=== PATIENT | male | born 1960 | race Caucasian/White ===

== ENCOUNTER → 2019-03-29 13:09 | Outpatient (CLI) | payer BC, SELFPAY ==
--- NOTE | ~2019-03-29 | XR_ITS ---
EXAMINATION: XR sinus min 3V DATE: 03/29/2019 13:31 INDICATION: Sinus problems. TECHNIQUE: 6 views of the paranasal sinuses were obtained. COMPARISON: None. FINDINGS: Bone alignment is normal. No fracture. There is moderate mucosal thickening in the maxillar y sinuses. IMPRESSION: 1. Moderate mucosal thickening in the maxillary sinuses. Reviewed, dictated and finalized at location [facility]. A DRIVER
== END ==
PROVIDERS: Visit Provider Otolaryngology
DX: J32.8 Other chronic sinusitis (principal)
CPT/HCPCS: 70220

== ENCOUNTER → 2023-03-20 13:09 | Outpatient (CLI) | payer BC, SELFPAY ==
--- NOTE | ~2023-03-20 | CT_ITS ---
EXAMINATION: CT sinus wo con DATE: 03/20/2023 13:24 INDICATION: Chronic sinusitis. History of sinus surgery. TECHNIQUE: Computed tomography (CT) of the paranasal sinuses was performed without contrast. Iterativ e reconstruction technique was employed. Exam dose: 269.39 mGy-cm total exam DLP. COMPARISON: None FINDINGS: Minimal leftward bowing of the nasal septum. The nasal turbinates are moderately prominent but relatively symmetric in size. Status post bilateral nasal antral windows and partial ethmoidectomies. There is minimal focal mucoperiosteal thickening of the maxillary sinuses and residual ethmoid air ce lls. The frontal and sphenoid sinuses are normally developed and aerated. Normal development and aeration of the mastoid air cells. IMPRESSION: Status post bilateral nasal antral windows and partial ethmoidectomies Minimal focal mucosal periosteal thickening of maxillary sinuses and ethmoid air cells Reviewed, dictated and finalized at [facility]. Reviewed, dictated and finalized at location [facility]. K [employer] IMPRESSION: Status post bilateral nasal antral windows and partial ethmoidecto mies Minimal focal mucosal periosteal thickening of maxillary sinuses and ethmoid ai r cells
== END ==
PROVIDERS: PCP Internal Medicine; Visit Provider Otolaryngology
DX: J32.9 Chronic sinusitis, unspecified (principal); Z98.890 Other specified postprocedural states
CPT/HCPCS: 70486